=== PATIENT | female | born 1965 | race Caucasian/White ===

== ENCOUNTER 2022-05-31 07:38 | Emergency (ER) | payer OTHER ==
[~2022-05-31] VITALS: Ht 167.6 cm; Wt 106.6 kg
[2022-05-31 07:44] VITALS: BP 162/106
[2022-05-31] MEDS ORDERED: CEPH500C16 PO (08:17)
[2022-05-31] MEDS ORDERED: TRAM-748 PO (08:17)
--- NOTE | 2022-05-31 09:24 | NUR ---
Patient discharged with v/s stable. Written and verbal after care instructions given and explained. Patient alert, oriented and verbalized understanding of instructions.whhelchair to waiting room, Ambulatory with steady gait to car. All questions addressed prior to discharge. ID band removed. Patient advised to follow up with PMD. Rx of given. Patient educated on indication of medication including possible reaction and side effects. Opportunity to ask questions provided and answered.
== END 2022-05-31 09:24 | disposition home or self-care (01) ==
LOC: MED 07:38
DX: L03.116 Cellulitis of left lower limb (principal); Z79.899 Other long term (current) drug therapy
CPT/HCPCS: 90471; 90715; 99284

== ENCOUNTER 2022-10-15 04:33 | Emergency (ER) | payer OTHER ==
[~2022-10-15] VITALS: Ht 167.6 cm; Wt 99.8 kg
[~2022-10-15 04:33] MED LIST: CEPH500C16 PO; TRAM-748 PO
[2022-10-15 04:35] VITALS: BP 124/78; PULSE 88; RESP 20; TEMP 96.5; O2SAT 97
--- NOTE | 2022-10-15 04:46 | NUR ---
TO LOBBY FOLLOWING TRIAGE
[2022-10-15] MEDS ORDERED: BACITRACIN OINT 500 UNITS/GM PKT TP ONE (06:46)
[2022-10-15] MEDS ORDERED: SULF-59 PO (06:52)
[2022-10-15] MEDS ORDERED: BACTO TP (06:52)
[2022-10-15] MEDS ORDERED: CEPH-588 PO (06:52)
--- NOTE | 2022-10-15 07:00 | NUR ---
Patient discharged with v/s stable. Written and verbal after care instructions given and explained. Patient alert, oriented and verbalized understanding of instructions. Ambulatory with steady gait. All questions addressed prior to discharge. ID band removed. Patient advised to follow up with PMD. Rx of KEFLEX, BACTRIM given. Patient educated on indication of medication including possible reaction and side effects. Opportunity to ask questions provided and answered.
== END 2022-10-15 06:59 | disposition home or self-care (01) ==
LOC: MED 04:33
DX: L02.211 Cutaneous abscess of abdominal wall (principal); I10 Essential (primary) hypertension; Z79.899 Other long term (current) drug therapy
CPT/HCPCS: 99283

== ENCOUNTER 2023-05-19 00:59 | Emergency (ER) | payer OTHER ==
[~2023-05-19] VITALS: Ht 167.6 cm; Wt 99.8 kg
[~2023-05-19 00:59] MED LIST changes: +BACTO TP; +CEPH-588 PO; +SULF-59 PO
[2023-05-19 01:04] VITALS: BP 200/118; PULSE 88; RESP 18; TEMP 97; O2SAT 98
[2023-05-19 01:52] LABS: BASOPHILS # (AUTO) 0.1 K/uL (0.00-0.22); EOSINOPHILS # (AUTO) 0.2 K/uL (0-0.4); EOSINOPHILS % (AUTO) 2.7 % (0.0-4.0); HEMATOCRIT 40.2 % (36-48); HEMOGLOBIN 13.5 g/dL (12.0-16.0); LYMPHOCYTES # (AUTO) 2.9 K/uL (2.5-16.5); LYMPHOCYTES % (AUTO) 32.2 % (20.5-51.1); MEAN CORPUSCULAR HEMOGLOBIN 32 pg (27-31); MEAN CORPUSCULAR HGB CONC 34 g/dL (33-37); MEAN CORPUSCULAR VOLUME 94.8 fL (80-94); MONOCYTES # (AUTO) 0.5 K/uL (0.8-1.0); MONOCYTES % (AUTO) 5.5 % (1.7-9.3); NEUTROPHILS # (AUTO) 5.2 K/uL (1.8-7.7); NEUTROPHILS % (AUTO) 58.6 % (42.2-75.2); PLATELET COUNT (AUTO) 406 K/uL (140-450); RED BLOOD CELL COUNT(AUTO) 4.24 MIL/uL (4.20-5.40); WHITE BLOOD COUNT (AUTO) 8.9 K/uL (4.8-10.8)
[2023-05-19 02:04] LABS: ANION GAP 11.7 (8-16); CARBON DIOXIDE 31.2 mmol/L (21-32); CREATININE 1.2 mg/dL (0.6-1.3); POTASSIUM 3.9 mmol/L (3.5-5.1)
[2023-05-19] MEDS: hydrALAZINE 20 MG/ML VIAL IVP ONE ×2 (02:05→03:07)
[2023-05-19 02:16] VITALS: RESP 18; TEMP 97; O2SAT 98
[2023-05-19 03:07] VITALS: BP 166/67; PULSE 84
[2023-05-19] MEDS ORDERED: NAPR-54 PO (06:06)
[2023-05-19] MEDS ORDERED: HYDR-2853 PO (06:06)
== END 2023-05-19 06:10 | disposition home or self-care (01) ==
LOC: MED 00:59
DX: S93.601A Unspecified sprain of right foot, initial encounter (principal); I10 Essential (primary) hypertension; Z79.899 Other long term (current) drug therapy; X58.XXXA Exposure to other specified factors, initial encounter; Y92.89 Other specified places as the place of occurrence of the external cause; Y93.89 Activity, other specified; Y99.8 Other external cause status
CPT/HCPCS: 36415; 73620; 80048; 85025; 96374; 96376; 99284; J0360; Q0092